=== PATIENT | female | born 1980 | race Caucasian/White ===

== ENCOUNTER 2016-09-11 08:06 | Emergency (ER) | payer BC ==
--- NOTE | 2016-09-11 08:26 | UC ---
Throat Pain/Nasal Abhijeet HPI - HPI Summary HPI Summary: complaint of nasal congestion and cough that started approx 7-10 days constant headache for 5 days pressure in her face more on left than right side fever and chills for the first several days left sided ear pain taking theraflu without much relief used albuterol inhaler twice during this illness - History of Current Complaint Stated Complaint: SINUS COMPLAINT Time Seen by Provider: 09/11/16 08:20 Hx Obtained From: Patient Hx Last Menstrual Period: DOES NOT HAVE REG PERIODS, HAS A MIRENA IUD - Allergies/Home Medications Allergies/Adverse Reactions: Allergies Allergy/AdvReac Type Severity Reaction Status Date / Time Penicillins Allergy Flushing Verified 09/11/16 08:35 Amoxicillin AdvReac GI Upset Verified 09/11/16 08:35 PMH/Surg Hx/FS Hx/Imm Hx Previously Healthy: Yes Respiratory History Of: Reports: Asthma - SEASONAL - Surgical History Surgical History: None - Family History Known Family History: Positive: Hypertension - Social History Occupation: Employed Full-time Lives: With Family Alcohol Use: Weekly Substance Use Type: None Smoking Status (MU): Never Smoked Tobacco Review of Systems Constitutional: Fever Skin: Negative Eyes: Negative ENT: Nasal Discharge Respiratory: Cough Cardiovascular: Negative Gastrointestinal: Negative Genitourinary: Negative Motor: Negative Neurovascular: Negative Musculoskeletal: Negative Neurological: Negative Psychological: Negative All Other Systems Reviewed And Are Negative: Yes Physical Exam Triage Information Reviewed: Yes Appearance: No Pain Distress, Well-Nourished Vital Signs Reviewed: Yes Eyes: Positive: Conjunctiva Clear ENT: Positive: Pharyngeal erythema, Nasal congestion, Nasal drainage, TM bulging , Other: - frontal and maxillary sinus tenderness. Negative: TM red Neck: Positive: No Lymphadenopathy Respiratory: Positive: Lungs clear, Normal breath sounds, No respiratory distress Cardiovascular: Positive: RRR, No Murmur Abdomen Description: Positive: Nontender, Soft Bowel Sounds: Positive: Present Musculoskeletal: Positive: No Edema Neurological: Positive: Alert Psychological Exam: Normal Skin Exam: Normal Throat Pain/Nasal Course/Dx - Differential Dx/Diagnosis Differential Diagnosis/HQI/PQRI: Sinusitis Provider Diagnoses: sinusitis Discharge - Discharge Plan Condition: Stable Disposition: HOME Prescriptions: DOXYcycline CAP(*) [DOXYcycline 100MG CAP(*)] 100 mg PO BID #20 cap Patient Education Materials: Sinusitis (ED) Referrals: Myriam Redding [Primary Care Provider] - Additional Instructions: SINUSITIS What is Sinusitis? Sinusitis is inflammation or infection of the lining of the sinuses behind the bones in your cheeks or forehead. Sinusitis may occur following a common cold, flu, or other infection; allergies; a tooth infection that spreads to the sinuses; swimming in contaminated water; pressure changes in airplanes at high altitudes; violent sneezing or nose blowing or smoking or breathing other peoples smoke. Symptoms Might Include: Nasal Congestion Sneezing Watery eyes, eye irritation, or eye itching Headaches Pressure in the cheeks Wheezing Trouble smelling Sore throat and coughing may occur Treatment Recommendations: Take medicines as prescribed until completely gone. Drink plenty of fluids. Use saline nose spray to thin the mucous and help the sinuses drain. Use a vaporizer or humidifier. Apply warm compresses to the face or forehead several times a day for 10 to 20 minutes. Call Your Doctor or Return Here IF: Your pain increases during treatment. You develop a high temperature. You develop unusual swelling around the eyes. You have difficulty with your vision. You develop a severe headache, earache, or toothache. You develop increased fever or fever that does not respond to medication such as Tylenol?. You have difficulty breathing or catching your breath. You begin to have any other new symptoms that worry you.
[2016-09-11 08:43] VITALS: BP 124/79
== END 2016-09-11 08:58 | disposition home or self-care (01) ==
LOC: UCCORT 08:06
DX: J32.9 Chronic sinusitis, unspecified (principal); Z88.1 Allergy status to other antibiotic agents; Z88.0 Allergy status to penicillin
CPT/HCPCS: 99212; G0463

== ENCOUNTER 2017-05-10 10:14 | Emergency (ER) | payer BC ==
[2017-05-10 12:19] VITALS: BP 124/88
--- NOTE | 2017-05-10 12:30 | UC ---
Throat Pain/Nasal Abhijeet HPI - HPI Summary HPI Summary: 36 year old female with ST, sinus pressure and productive cough. Cough is causing some chest heaviness and feels like she has something in her lungs. 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 Sore throat is scratchy and not bad. No fever. no chills . No n/v/d. Missed school today. - History of Current Complaint Chief Complaint: UCGeneralIllness Stated Complaint: THROAT,CHEST CONGESTION,BILATERAL EAR COMPLAINT Time Seen by Provider: 05/10/17 12:27 Hx Obtained From: Patient Hx Last Menstrual Period: MIRANA Onset/Duration: Gradual Onset Cough: Productive - Allergies/Home Medications Allergies/Adverse Reactions: Allergies Allergy/AdvReac Type Severity Reaction Status Date / Time Penicillins Allergy Flushing Verified 05/10/17 12:19 Amoxicillin AdvReac GI Upset Verified 05/10/17 12:19 PMH/Surg Hx/FS Hx/Imm Hx Previously Healthy: Yes - Surgical History Surgical History: None - Family History Known Family History: Positive: Hypertension - Social History Occupation: Employed Full-time Lives: With Family Alcohol Use: Weekly Substance Use Type: None Smoking Status (MU): Never Smoked Tobacco - Immunization History Most Recent Influenza Vaccination: NOT CURRENT Review of Systems Constitutional: Fatigue ENT: Sore Throat, Ear Ache, Nasal Discharge, Sinus Congestion, Sinus Pain/ Tenderness Respiratory: Cough Is Patient Immunocompromised?: No All Other Systems Reviewed And Are Negative: Yes Physical Exam Triage Information Reviewed: Yes Appearance: Well-Appearing, No Pain Distress, Well-Nourished Vital Signs: Initial Vital Signs Temp 97.9 F 05/10/17 12:12 Pulse 79 05/10/17 12:12 Resp 18 05/10/17 12:12 BP 124/88 05/10/17 12:12 Pulse Ox 100 05/10/17 12:12 Vital Signs Reviewed: Yes Eye Exam: Normal ENT Exam: Normal Dental Exam: Normal Neck exam: Normal Neck: Positive: 1 Respiratory Exam: Normal Cardiovascular Exam: Normal Musculoskeletal Exam: Normal Neurological Exam: Normal Psychological Exam: Normal Skin Exam: Normal Throat Pain/Nasal Course/Dx - Course Course Of Treatment: neg xray. URI. no acute concerns. RTO if any concerns - Differential Dx/Diagnosis Differential Diagnosis/HQI/PQRI: Pharyngitis, Sinusitis, Tonsillitis, URI Provider Diagnoses: URI Discharge - Discharge Plan Condition: Good Disposition: HOME Patient Education Materials: Upper Respiratory Infection (ED) Referrals: Myriam Redding [Primary Care Provider] - 4 Days
--- NOTE | 2017-05-10 13:01 | RAD ---
INDICATION: Cough COMPARISON: None TECHNIQUE: PA and lateral dual-energy views were obtained. FINDINGS: Bones/Soft Tissues: There are no acute bony findings. Cardiomediastinal: The cardiomediastinal silhouette is normal. Lungs: There are no infiltrates. Pleura: There are no pleural effusions. Other: None IMPRESSION: NORMAL CHEST.
== END 2017-05-10 13:27 | disposition home or self-care (01) ==
LOC: UCCORT 10:14
DX: J06.9 Acute upper respiratory infection, unspecified (principal); Z88.0 Allergy status to penicillin
CPT/HCPCS: 71020; 99211; G0463

== ENCOUNTER 2017-12-22 18:34 | Emergency (ER) | payer BC ==
[2017-12-22 19:28] VITALS: BP 135/83
--- NOTE | 2017-12-22 19:56 | UC ---
Throat Pain/Nasal Abhijeet HPI - HPI Summary HPI Summary: C/O bilateral ear pain, left > right with congestion and sinus pain. No cough or sore throat. - History of Current Complaint Chief Complaint: UCEar Stated Complaint: SINUS PRESSURE AND EARS Time Seen by Provider: 12/22/17 19:48 Hx Obtained From: Patient Hx Last Menstrual Period: HAS THE MIRENA, DOES NOT HAVE REG PERIODS ?: No Onset/Duration: Sudden Onset, Lasting Weeks - 1, Worse Since - today Severity: Moderate Pain Intensity: 5 Cough: None Associated Signs & Symptoms: Positive: Sinus Discomfort Related History: Seasonal Allergies - Allergies/Home Medications Allergies/Adverse Reactions: Allergies Allergy/AdvReac Type Severity Reaction Status Date / Time amoxicillin Allergy GI Upset Verified 12/22/17 19:19 Penicillins Allergy Flushing Verified 12/22/17 19:19 Home Medications: Home Medications Fluticasone NASAL SPRAY 50MCG* [Flonase NASAL SPRAY 50MCG*] 2 spray BOTH NARES DAILY 12/22/17 [History Confirmed 12/22/17] PMH/Surg Hx/FS Hx/Imm Hx Respiratory History: Asthma - Surgical History Surgical History: None - Family History Known Family History: Positive: Cardiac Disease, Hypertension, Diabetes - Social History Occupation: Employed Full-time Lives: With Family Alcohol Use: Weekly Substance Use Type: None Smoking Status (MU): Never Smoked Tobacco - Immunization History Most Recent Influenza Vaccination: NOT CURRENT Review of Systems Constitutional: Chills ENT: Ear Ache, Sinus Congestion, Sinus Pain/Tenderness Is Patient Immunocompromised?: No All Other Systems Reviewed And Are Negative: Yes Physical Exam Triage Information Reviewed: Yes Appearance: Well-Appearing, No Pain Distress, Well-Nourished Vital Signs: Initial Vital Signs Temp 99.1 F 12/22/17 19:21 Pulse 87 12/22/17 19:21 Resp 16 12/22/17 19:21 BP 135/83 12/22/17 19:21 Pulse Ox 99 12/22/17 19:21 Vital Signs Reviewed: Yes Eyes: Positive: Conjunctiva Clear ENT: Positive: Pharynx normal, Nasal congestion - with allergic changes., TMs normal - AD, obstructed by material in the canal. Tender left external canal. Neck exam: Normal Respiratory Exam: Normal Cardiovascular Exam: Normal Musculoskeletal Exam: Normal Neurological Exam: Normal Psychological Exam: Normal Skin: Positive: rashes - Herpes outbreak right lower lip Throat Pain/Nasal Course/Dx - Differential Dx/Diagnosis Differential Diagnosis/HQI/PQRI: Otitis Media, Sinusitis, URI Provider Diagnoses: Left acute otitis externa. Allergic rhinitis. Acute sinusitis. Discharge - Sign-Out/Discharge Documenting (check all that apply): Discharge/Admit/Transfer - Discharge Plan Condition: Stable Disposition: HOME Prescriptions: Cefuroxime 500 MG(NF) 500 mg PO BID #20 tab Patient Education Materials: Allergic Rhinitis (ED), Otitis Externa (ED), Sinusitis (ED), Cefuroxime (By mouth) Referrals: Myriam Redding [Primary Care Provider] - Additional Instructions: NEILMED SINUS RINSE: CHECK OUT AT [facility] Saline nasal wash helps with mucous, allergies and congestion. It can be used up to twice a day or only as needed. Use lukewarm tap water. It does not have to be sterilized or distilled water. Do 1/3 on each side and snort out of both nostrils. Repeat the process with 1/6 of the bottle on each side with snorting in between to finish the solution in the bottle Do the fluticasone 30-45 minutes after the sinus rinse. - Billing Disposition and Condition Condition: STABLE Disposition: Home
[2017-12-22] MEDS ORDERED: ceFUROXime TAB(*) 250 MG PO ONE (20:03)
== END 2017-12-22 20:20 | disposition home or self-care (01) ==
LOC: UCCORT 18:34
DX: H60.92 Unspecified otitis externa, left ear (principal); J30.9 Allergic rhinitis, unspecified; J01.90 Acute sinusitis, unspecified; Z88.0 Allergy status to penicillin
CPT/HCPCS: 99212; G0463

== ENCOUNTER 2018-04-04 14:37 | Emergency (ER) | payer BC ==
[2018-04-04 15:25] VITALS: BP 119/82
--- NOTE | 2018-04-04 15:41 | ED ---
Throat Pain/Nasal Congestion - HPI Summary HPI Summary: 37 yr old female with the complaint of bilateral ear pain, sinus pressure, post nasal drip, and cough. Onset 7 days ago. No NVD, no fever. She has had sinusitis and ear infections before. This happens each year. - History of Current Complaint Chief Complaint: UCGeneralIllness Time Seen by Provider: 04/04/18 15:28 - Allergies/Home Medications Allergies/Adverse Reactions: Allergies Allergy/AdvReac Type Severity Reaction Status Date / Time amoxicillin Allergy GI Upset Verified 04/04/18 15:25 Penicillins Allergy Flushing Verified 04/04/18 15:25 PMH/Surg Hx/FS Hx/Imm Hx Respiratory History: Reports: Hx Asthma - SEASONAL Infectious Disease History: No Infectious Disease History: Denies: Traveled Outside the [place] in Last 30 Days - Family History Known Family History: Positive: Cardiac Disease, Hypertension, Diabetes - Social History Occupation: Employed Full-time Alcohol Use: Weekly Substance Use Type: Reports: None Smoking Status (MU): Never Smoked Tobacco Review of Systems Constitutional: Negative Positive: Ear Ache, Nasal Discharge Positive: Cough All Other Systems Reviewed And Are Negative: Yes Physical Exam Triage Information Reviewed: Yes Vital Signs On Initial Exam: Initial Vitals Temp Pulse Resp BP Pulse Ox 97.8 F 81 16 119/82 3 04/04/18 15:21 04/04/18 15:21 04/04/18 15:21 04/04/18 15:21 04/04/18 15:21 Vital Signs Reviewed: Yes Appearance: Positive: Well-Appearing, No Pain Distress Skin: Positive: Warm, Skin Color Reflects Adequate Perfusion, Dry Head/Face: Positive: Normal Head/Face Inspection Eyes: Positive: EOMI, JAIR ENT: Positive: Nasal congestion, TM red - left greater than right with effusion , Sinus tenderness, Uvula midline. Negative: Pharyngeal erythema, Muffled voice , Hoarse voice Neck: Positive: Supple, Nontender Respiratory/Lung Sounds: Positive: Clear to Auscultation, Breath Sounds Present Cardiovascular: Positive: RRR. Negative: Murmur Abdomen Description: Positive: Nontender Musculoskeletal: Positive: Strength/ROM Intact Neurological: Positive: Sensory/Motor Intact, Alert, Oriented to Person Place, Time, CN Intact II-III Psychiatric: Positive: Normal - Lionel Coma Scale Best Eye Response: 4 - Spontaneous Best Motor Response: 6 - Obeys Commands Best Verbal Response: 5 - Oriented Coma Scale Total: 15 Diagnostics - Vital Signs Vital Signs Temp Pulse Resp BP Pulse Ox 04/04/18 15:21 97.8 F 81 16 119/82 3 - Laboratory Lab Statement: Any lab studies that have been ordered have been reviewed, and results considered in the medical decision making process. EENT Course/Dx - Course Course Of Treatment: 37 yr old female with sinusitis, and OM. Rx with biaxin. - Diagnoses Provider Diagnoses: Sinusitis, Otitis media Discharge - Sign-Out/Discharge Documenting (check all that apply): Patient Departure All imaging exams completed and their final reports reviewed: No Studies - Discharge Plan Condition: Good Disposition: HOME Prescriptions: Clarithromycin TAB* [Biaxin 500 MG TAB*] 500 mg PO BID #20 tab Patient Education Materials: Sinusitis (ED), Ear Infection (ED) Referrals: Myriam Redding [Primary Care Provider] - 2 Days - Billing Disposition and Condition Condition: GOOD Disposition: Home
== END 2018-04-04 15:44 | disposition home or self-care (01) ==
LOC: UCCORT 14:37
DX: J32.9 Chronic sinusitis, unspecified (principal); H66.93 Otitis media, unspecified, bilateral; Z88.0 Allergy status to penicillin
CPT/HCPCS: 99212; G0463

== ENCOUNTER 2018-08-22 10:02 | Emergency (ER) | payer BC ==
[2018-08-22 10:51] VITALS: BP 126/80
--- NOTE | 2018-08-22 11:20 | UC ---
Throat Pain/Nasal Abhijeet HPI - HPI Summary HPI Summary: Patient has had increased sinus pressure and ear pressure, denies any SOB fever or body aches - History of Current Complaint Chief Complaint: UCRespiratory Stated Complaint: SINUS CONGESTION,ST,COUGH,ACHY Time Seen by Provider: 08/22/18 11:03 Hx Obtained From: Patient Hx Last Menstrual Period: IUD ?: No Onset/Duration: Sudden Onset, Lasting Weeks - 1 Severity: Mild Pain Intensity: 0 Cough: Nonproductive Associated Signs & Symptoms: Positive: Dysphagia, Sinus Discomfort, Nasal Discharge - Allergies/Home Medications Allergies/Adverse Reactions: Allergies Allergy/AdvReac Type Severity Reaction Status Date / Time amoxicillin Allergy Severe GI Upset Verified 08/22/18 10:47 Penicillins Allergy Flushing Verified 08/22/18 10:47 PMH/Surg Hx/FS Hx/Imm Hx Previously Healthy: Yes - Surgical History Surgical History: None - Family History Known Family History: Positive: Cardiac Disease, Hypertension, Diabetes - Social History Alcohol Use: Weekly Alcohol Amount: 3/WEEK Substance Use Type: None Smoking Status (MU): Never Smoked Tobacco - Immunization History Most Recent Influenza Vaccination: NOT CURRENT Review of Systems All Other Systems Reviewed And Are Negative: Yes Constitutional: Positive: Negative Skin: Positive: Negative Eyes: Positive: Negative ENT: Positive: Sore Throat, Ear Ache, Nasal Discharge, Sinus Congestion, Sinus Pain/Tenderness Respiratory: Positive: Cough Cardiovascular: Positive: Negative Gastrointestinal: Positive: Negative Genitourinary: Positive: Negative Motor: Positive: Negative Neurovascular: Positive: Negative Musculoskeletal: Positive: Negative Neurological: Positive: Headache Psychological: Positive: Negative Is Patient Immunocompromised?: No Physical Exam Triage Information Reviewed: Yes Appearance: Well-Nourished, Ill-Appearing, Pain Distress Vital Signs: Initial Vital Signs Temp 97.4 F 08/22/18 10:48 Pulse 80 08/22/18 10:48 Resp 15 08/22/18 10:48 BP 126/80 08/22/18 10:48 Pulse Ox 100 08/22/18 10:48 Vital Signs Reviewed: Yes Eye Exam: Normal ENT: Positive: Pharyngeal erythema - wiht PND, Nasal congestion - bilateral inflammation of nares noted Dental Exam: Normal Neck exam: Normal Respiratory: Positive: Chest non-tender, Normal breath sounds, No respiratory distress, Wheezing, Inspiration - left and right lung Cardiovascular Exam: Normal Cardiovascular: Positive: RRR, No Murmur, Pulses Normal Abdominal Exam: Normal Abdomen Description: Positive: Nontender, No Organomegaly, Soft Musculoskeletal Exam: Normal Neurological Exam: Normal Psychological Exam: Normal Skin Exam: Normal Throat Pain/Nasal Course/Dx - Course Course Of Treatment: hx obtained exam performed ,meds reviewed, treate for sinusitis and wheezing - Differential Dx/Diagnosis Differential Diagnosis/HQI/PQRI: Laryngitis, Otitis Media, Pharyngitis, Sinusitis, URI Provider Diagnosis: Rhinosinusitis, Wheezing Discharge - Sign-Out/Discharge Documenting (check all that apply): Patient Departure All imaging exams completed and their final reports reviewed: No Studies - Discharge Plan Condition: Stable Disposition: HOME Prescriptions: Albuterol HFA INHALER* [Ventolin HFA Inhaler*] 2 puff INH Q4H PRN #1 mdi PRN Reason: Wheezing predniSONE [Prednisone 20 MG TAB] 40 mg PO DAILY #14 tablet Patient Education Materials: Rhinosinusitis (ED) Referrals: Myriam Redding [Primary Care Provider] - Additional Instructions: 1. take the medication as prescribed. 2. Start the Elena after the prednisones 3. Continue with nasal wash 1-2 times a day 4. use the albuterol morning and night for the next few days, can use it every 4 hours as needed. 5. Follow up if not improving - Billing Disposition and Condition Condition: STABLE Disposition: Home
== END 2018-08-22 11:26 | disposition home or self-care (01) ==
LOC: UCCORT 10:02
DX: J32.9 Chronic sinusitis, unspecified (principal); R06.2 Wheezing; Z88.0 Allergy status to penicillin
CPT/HCPCS: 99212; G0463

== ENCOUNTER 2018-09-17 09:15 | Emergency (ER) | payer BC ==
[2018-09-17 10:17] VITALS: BP 116/78
--- NOTE | 2018-09-17 10:28 | UC ---
UC General HPI - HPI Summary HPI Summary: per triage, Body aches and fatigue, fever headache started suddenly last night ; Sneezing for a few days - History of Current Complaint Chief Complaint: UCRespiratory Stated Complaint: HEADACHE, FEVER Time Seen by Provider: 09/17/18 10:15 Hx Obtained From: Patient Hx Last Menstrual Period: n/a Onset/Duration: Sudden Onset Timing: Constant Pain Intensity: 7 Associated Signs & Symptoms: Negative: Cough, Chest Pain, Diarrhea, SOB, Vomiting - Allergy/Home Medications Allergies/Adverse Reactions: Allergies Allergy/AdvReac Type Severity Reaction Status Date / Time amoxicillin Allergy Severe GI Upset Verified 09/17/18 10:10 Penicillins Allergy Flushing Verified 09/17/18 10:10 seasonal Allergy sinus Uncoded 09/17/18 10:11 infections Home Medications: Home Medications Fexofenadine/Pseudoephedrine [Elena-D 24 Hour Tablet] 1 each PO DAILY [History Confirmed 09/17/18] PMH/Surg Hx/FS Hx/Imm Hx - Additional Past Medical History Additional PMH: allergies GI/ History: Gastroesophageal Reflux - Surgical History Surgical History: None - Family History Known Family History: Positive: Cardiac Disease, Hypertension, Diabetes - Social History Occupation: Employed Full-time Lives: With Family Alcohol Use: Weekly Alcohol Amount: 3/WEEK Substance Use Type: None Smoking Status (MU): Never Smoked Tobacco - Immunization History Most Recent Influenza Vaccination: NOT CURRENT Vaccination Up to Date: Yes Review of Systems All Other Systems Reviewed And Are Negative: Yes Physical Exam Triage Information Reviewed: Yes Appearance: Ill-Appearing - but non toxic Vital Signs: Initial Vital Signs Temp 97.6 F 09/17/18 10:13 Pulse 83 09/17/18 10:13 Resp 14 09/17/18 10:13 BP 116/78 09/17/18 10:13 Pulse Ox 100 09/17/18 10:13 Vital Signs Reviewed: Yes Eyes: Positive: Conjunctiva Clear ENT: Positive: Pharynx normal, TMs normal. Negative: Nasal drainage Neck: Positive: Supple, Nontender, No Lymphadenopathy Respiratory: Positive: Lungs clear, Normal breath sounds Cardiovascular: Positive: RRR, No Murmur Abdomen Description: Positive: Nontender Bowel Sounds: Positive: Present Musculoskeletal: Positive: ROM Intact Neurological: Positive: Alert Psychological: Positive: Age Appropriate Behavior Skin Exam: Normal Course/Dx - Course Course Of Treatment: DIAGNOSTICS=RAPID FLU IS NEGATIVE. - Diagnoses Provider Diagnosis: Viral syndrome Discharge - Sign-Out/Discharge Documenting (check all that apply): Patient Departure All imaging exams completed and their final reports reviewed: No Studies - Discharge Plan Condition: Stable Disposition: HOME Patient Education Materials: Viral Syndrome (ED) Forms: *Work Release Referrals: Myriam Redding [Primary Care Provider] - Additional Instructions: FOLLOW UP WITH PRIMARY CARE IF NOT BETTER IN 3-5 DAYS OR SOONER IF WORSE. - Billing Disposition and Condition Condition: STABLE Disposition: Home
[2018-09-17 10:42] LABS: Influenza A Molecular NEGATIVE (Negative); Influenza B Molecular NEGATIVE (Negative)
== END 2018-09-17 11:10 | disposition home or self-care (01) ==
LOC: UCCORT 09:15
DX: B34.9 Viral infection, unspecified (principal); R53.83 Other fatigue; R52 Pain, unspecified; R51 Headache; Z88.0 Allergy status to penicillin; Z91.09 Other allergy status, other than to drugs and biological substances
CPT/HCPCS: 99211; G0463

== ENCOUNTER 2019-07-13 11:21 | Emergency (ER) | payer BC ==
--- OUTSIDE RECORDS SUMMARY | 2019-07-13 12:32 | XMS REPORT | Continuity of Care Document ---
:1980 External Reference #:[id number] Author Name HUY Wells Address [address] [place] [id number] Problems Description No Information Available Social History Type Date Description Comments Sex Unknown Allergies, Adverse Reactions, Alerts Active Allergies Reaction Severity Comments Date Penicillin Diarrhea 05/12/2019 Medications Active Medications SIG Qnty Indications Ordering Provider Date Ventolin HFA 2 puffs every 6 1units J45.901 Dejuan 05/12/2019 108(90Base) hours MD Estephanie mcg/Act Aerosol Prednisone 40mg daily x 5 10tabs J45.901 Dejuan 05/12/2019 20mg Tablets days MD Estephanie Azithromycin 2 by mouth day 6tabs J45.901 Dejuan 05/12/2019 250mg one then 1 days MD Estephanie Tablets 2-5 Omeprazole prn Unknown 20mg Capsules DR Moffett prn Unknown 1gm Tablets Fluticasone Propionate prn Unknown Nasal [place] 24- Hour 50mcg/Act Suspension Immunizations Description No Information Available Vital Signs Date Vital Result Comment 05/12/2019 11:04am Heart Rate 104 /min BP Systolic 124 mmHg BP Diastolic 76 mmHg Respiratory Rate 16 /min Body Temperature 99.6 F O2 % BldC Oximetry 99 % Results Description No Information Available Procedures Description No Information Available Medical Devices Description No Information Available Encounters Type Date Location Provider Dx Diagnosis Office Visit 05/12/2019 [facility] HUY Wells J20.9 Acute bronchitis, 10:59a Walk-in at [place] unspecified Drugs J45.901 Unspecified asthma with (acute) exacerbation Assessments Date Code Description Provider 05/12/2019 J20.9 Acute bronchitis, unspecified HUY Wells 05/12/2019 J45.901 Unspecified asthma with (acute) exacerbation HUY Wells Plan of Treatment 05/12/2019 - HUY WellsJ20.9 Acute bronchitis, unspecifiedComments: FOLLOW UP WITH PRIMARY CARE, [facility] IN 5-7 DAYS FOR A RECHECK.GO TO THE ER FOR ANY WORSENING.J45.901 Unspecified asthma with (acute) exacerbationNew Medication:Ventolin HFA 108(90 Base) mcg/Act - 2 puffs every 6 hoursPrednisone 20 mg - 40mg daily x 5 daysAzithromycin 250 mg - 2 by mouth day one then 1 days 2-5 Functional Status Description No Information Available Mental Status Description No Information Available Referrals Description No Information Available
--- OUTSIDE RECORDS SUMMARY | 2019-07-13 12:32 | XMS REPORT | Continuity of Care Document ---
:1980 External Reference #:[id number] Author Name Radha Mohan, DEANA Address [address] [place] [id number] Care Team Providers Name Role Phone Radha Steiner MD - Care Team Information Machine Washer [phone] Dermatology Epi Thomas md Care Team Information Machine Washer [phone] Radha Mohan NP - Family Care Team Information Machine Washer [phone] [facility] Allergy & Care Team Information Machine Washer Immunology Problems Active Problems Provider Date Migraine with typical aura Myriam Redding NP Onset: 05/20/2012 Heartburn Myriam Redding NP Onset: 01/06/2019 Allergic rhinitis Myriam Redding NP Onset: 01/06/2019 Social History Type Date Description Comments Sex Unknown ETOH Use Currently consumes alcohol daily, up to 6 beers/day Tobacco Use Start: Unknown Patient has never smoked Smoking Status Reviewed: 06/01/19 Patient has never smoked Allergies, Adverse Reactions, Alerts Active Allergies Reaction Severity Comments Date NKDA 07/06/2014 Seasonal 04/25/2016 Medications Active Medications SIG Qnty Indications Ordering Provider Date Prednisone 6 by mouth daily LashataEmily Constantino, 06/06/2019 10mg Tablets x 3 days, then MD decrease dose by 1 pill daily every 3 days until gone. Mirena (52 MG) as directed Miladis, 10/10/2017 DEANA Miguel 20mcg/24HR IUD Proair HFA 2 puffs every 4 1units T78.40xA Digiovanna, 01/08/2015 108(90Base) hours as needed Myriam, BOILING HOUSE OILER mcg/Act Aerosol for cough or sob J30.9 Fluticasone Shake Liquid And 16units T78.40xA Digiovanna, 10/16/2014 Propionate Use 1 [place] In Myriam, BOILING HOUSE OILER 50mcg/Act Each Nostril Suspension Daily J30.9 Excedrin Migraine 1-2 po Q4H prn G43.109 Digiovanna, 07/06/2014 migraine Myriam, BOILING HOUSE OILER [phone] Tablets Valacyclovir HCL 1 tab by mouth 20tabs B00.1 Digiovanna, 1gm q12 x 5 days Myriam, BOILING HOUSE OILER Tablets hours as needed Omeprazole take 1 capsule by 90caps R12 Digiovanna, 20mg Capsules mouth daily as Myriam, BOILING HOUSE OILER DR needed History Medications Benzonatate 1 by mouth 60caps R05 Emily Weinberg, 05/30/2019 - 100mg three times a 06/09/2019 Capsules day as needed for cough Prednisone 2 by mouth 11tabs J20.9 Emily Weinberg, 05/30/2019 - 20mg Tablets every day for 4 MD 06/06/2019 days then 1 by mouth every day for 3 days Immunizations CPT Code Status Date Vaccine Reaction Lot # [id number] Given 05/20/2012 Tdap (Adacel) Ages 7 And Above Only [id number] Refused 04/08/2019 Afluria Or Fluvirin Flu Vac Intramuscular Q2039 Refused 01/06/2019 Flu Vaccine NOS Pt says she does not get flu shots. CARYL TROY Q2039 Refused 07/15/2018 Flu Vaccine NOS NOT GETTING Vital Signs Date Vital Result Comment 06/09/2019 3:03pm Body Temperature 97.8 F Weight 145.00 lb Heart Rate 80 /min BP Systolic 110 mmHg BP Diastolic 84 mmHg Respiratory Rate 16 /min Height 63.5 inches 5'3.50" CARYL Troy 01/06/19 O2 % BldC Oximetry 99 % BMI (Body Mass Index) 25.3 kg/m2 05/30/2019 4:28pm Body Temperature 98.6 F Heart Rate 79 /min BP Systolic 122 mmHg BP Diastolic 86 mmHg Respiratory Rate 16 /min Height 63.5 inches 5'3.50" CARYL Troy 01/06/19 O2 % BldC Oximetry 99 % Results Test Acquired Date Facility Test Result H/L Range Note CBC with Auto Diff-fcmg 06/09/2019 [facility] WBC 15.6 K/uL High 4.1-11.0 1 RBC 4.49 M/uL 4.00-5.40 2 Hemoglobin 14.6 gm/dL 12.0-16.0 3 Hematocrit 43.3 % 36.0-47.0 4 MCV 96.6 fL High 80.0-95.0 5 MCH 32.5 pg High 27.0-32.0 6 MCHC 33.6 g/dL 32.0-36.0 7 RDW 13.6 % 10.5-14.5 8 PLT Count 312 K/ul 150-400 9 MPV 8.6 FL 7.1-10.7 Neutrophil 89.7 % High 35.0-75.0 10 Lymphocyte 6.9 % Low 16.0-52.0 11 Monocyte 3.0 % 0.0-8.0 12 Eosinophil 0.0 % 0.0-5.0 Basophil 0.4 % 0.0-4.0 Abs Neutrophils 14.0 K/uL High 1.8-7.7 13 Abs Lymphocytes 1.1 K/uL Low 1.2-4.8 14 Abs Monocytes 0.5 K/uL 0.0-0.8 15 Abs Eosinophils 0.0 K/uL 0.0-0.5 16 Abs Basophils 0.1 K/uL 0.0-0.2 17 Comprehensive Met Panel-[facility] 06/09/2019 [facility] Sodium 139 mmol/L 135- 146 18 Potassium 4.2 mmol/L 3.5-5.2 Chloride# 103 mmol/L 97-110 19 Carbon Dioxide 27 mmol/L 24-34 Calcium 9.9 mg/dL 8.5-10.5 20 Glucose 101 mg/dL 70-105 BUN 17 mg/dL 6-26 Creatinine 0.8 mg/dL 0.5-1.4 Total Protein 6.6 g/dL 6.0-8.0 Albumin 4.7 g/dL 3.6-4.9 Globulin 1.9 g/dL Low 2.0-3.5 A/G Ratio 2.5 Ratio High 1.0-2.2 Total Bilirubin 0.7 mg/dL 0.1-1.3 Alkaline Phosphatase 57 U/L 24-140 Alt 13 U/L 3-42 Ast 12 U/L 8-42 Anion Gap 9 mmol/L 5-15 21 Female Egfr 90 >60 22 Male Egfr 111 >60 23 1 Updated Reference Range 04/2019 2 Updated Reference Range 04/2019 3 Updated Reference Range 04/2019 4 Updated Reference Range 04/2019 5 Updated Reference Range 04/2019 6 Updated Reference Range 04/2019 7 Updated Reference range 04/2019 8 Updated Reference range 04/2019 9 Updated Reference Range 04/2019 10 Updated Reference Range 04/2019 11 Updated Reference Range 04/2019 12 Updated Reference Range 04/2019 13 Updated Reference Range 04/2019 14 Updated Reference Range 04/2019 15 Updated Reference Range 04/2019 16 Updated Reference Range 04/2019 17 Updated Reference Range 04/2019 18 Updated reference range on new analyzer 19 Updated reference range on new analyzer 20 Updated reference range 10-23-2018 21 Updated Reference Range 22 Concerning GFR Guidelines for Americans: Normal function or mild renal disease, if clinically at risk: >/= 60 mL/min Moderately decreased: 30-59 Severely decreased: 15-29 Renal failure: <15 There is reduced accuracy above 60ml/min/1.73 m squared, but the numeric value may be clinically useful in the near 60 range 23 Concerning GFR Guidelines: Normal function or mild renal disease, if clinically at risk: >/= 60 mL/min Moderately decreased: 30-59 Severely decreased: 15-29 Renal failure: <15 There is reduced accuracy above 60ml/min/1.73 m squared, but the numeric value may be clinically useful in the near 60 range Glomerular Filtration Rate (GFR) is estimated based on the CKD-EPI equation, which assumes a steady state for creatinine as recommended by the National Kidney Disease Education Program in conjunction with the National Institutes of Health and the National Kidney Foundation. Clinical conditions in which it may be necessary to measure GFR by using clearance methods include extremes of age and body size, severe malnutrition or obesity, diseases of skeletal muscle, paraplegia or quadriplegia, vegetarian diet, rapidly changing kidney function, and calculation of the dose of potentially toxic drugs that are excreted by the kidneys. Procedures Date Code Description Status 06/09/2019 80710 Measure Blood Oxygen Level Single Determination Completed 05/30/2019 02767 Measure Blood Oxygen Level Single Determination Completed Medical Devices Description No Information Available Encounters Type Date Location Provider Dx Diagnosis Office Visit 05/30/2019 [facility] Radha Mohan NP J20.9 Acute bronchitis, 4:15p unspecified R05 Cough Office Visit 04/08/2019 2:30p [facility] Myriam Redding BOILING HOUSE OILER D49.2 Neoplasm of unsp behavior of bone, soft tissue, and skin Z68.26 Body mass index (BMI) 26.0-26.9, adult Office Visit 01/06/2019 11:00a [facility] DigisaiahvanLauren agudeloMyriam, Z00.00 Encntr for general BOILING HOUSE OILER adult medical exam w/o abnormal findings G43.109 Migraine with aura, not intractable, w/o status migrainosus R12 Heartburn J30.9 Allergic rhinitis, unspecified 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, in remission Z13.31 Encounter for screening for depression Z68.28 Body mass index (BMI) 28.0-28.9, adult Assessments Date Code Description Provider 06/09/2019 R00.2 Palpitations Radha Mohan NP 06/09/2019 J20.9 Acute bronchitis, unspecified StraRadha ocampo, BOILING HOUSE OILER 06/09/2019 R00.2 Palpitations Schedule, Laboratory 06/09/2019 R00.2 Palpitations [facility] 05/30/2019 J20.9 Acute bronchitis, unspecified Radha Mohan, BOILING HOUSE OILER 05/30/2019 R05 Cough Radha Mohan, BOILING HOUSE OILER 04/08/2019 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, Digiovanna, Myriam, BOILING HOUSE OILER soft tissue, and skin 04/08/2019 Z68.26 Body mass index (BMI) 26.0-26.9, adult DigLauren khanricia, BOILING HOUSE OILER 01/06/2019 Z00.00 Encounter for general adult medical Myriam Redding, BOILING HOUSE OILER examination without abno 01/06/2019 G43.109 Migraine with aura, not intractable, Digiovanna, Myriam , BOILING HOUSE OILER without status migraino 01/06/2019 R12 Heartburn Lauren Reddingricia, BOILING HOUSE OILER 01/06/2019 J30.9 Allergic rhinitis, unspecified Digiovanna, Myriam, BOILING HOUSE OILER 01/06/2019 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, in remission Digiovanna, Myriam, BOILING HOUSE OILER 01/06/2019 Z13.31 Encounter for screening for depression Myriam Redding NP 01/06/2019 Z68.28 Body mass index (BMI) 28.0-28.9, adult Myriam Redding NP Plan of Treatment Future Appointment(s):07/11/2019 8:00 am - Radha Mohan NP at [facility]01/12/2020 9:00 am - Radha Mohan NP at [facility]06/09/2019 - Radha Mohan, NPR00.2 PalpitationsNew Orders:Holter Monitor, Ordered: 06/09/19Comments:Intermittent Palpitations with electric like sensation. Asymptomatic now. Exam unremarkable.Will check holtor monitor and labs. Consider referral to cardiology with significant findings. Advised to initiate EMS if palpitations occur in association with HR>120, chest pain, shortness of breath, dizziness or feeling faint.Follow up:Labs today Follow-up in one month for recheck of nyrfxhppdsxyW23.9 Acute bronchitis, unspecifiedComments:Bronchitis is better. Hyperinflation shown on CXR. State uncertain if diagnosed with asthma as a child however was raised with second hand smoke and was previously placed on Proair PRN. 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 Will refer to [facility] fore evaluation. Continue prednisone taper. Take with foodSupportive care:Plenty of rest and fluidsOTC Analgesics/antipyretics as neededRecommend Mucinex 600 mg every 12 hours until cough resolvesYou should start to feel better over the next 2-3 days. If your symptoms worsen or you develop fever greater than 101.0, return to office for re-evaluation.Referral:[facility] & [facility]; Immun[facility] Functional Status Description No Information Available Mental Status Description No Information Available Referrals Refer to Reason for Referral Status Appt Date [facility] Diagnostic evaluation for asthma. Recent Created CXR with hyperinflation. Significant hx of second hand smoke in home as a child. [address] [place] [id number] [phone] Epi Thomas md Evaluation of large lipoma R upper arm Faxed Closed 09/2018 all forms for provider to review in order to get an apt scheduled. CHERELLE 04/15 Called and spoke to Sondra at Dr. Thomas office. Pt scheduled for 04/23@11am. LM on pt home phone to notify of apt date, time, and location. CHERELLE 04/15 called and spoke with and she stated that pt was sched on 04/28 and came to that and was sched for surg and no showed and never called back to sched surg 05/21 ms [address] [place] [address] [phone] Radha Steiner MD Evaluation and possible excision Patient Declined of skin lesion L lateral breast [place] Office FORMS FAXED FOR PROVIDER TO REVIEW IN ORDER TO GET AN APPT SCHEDULED/SCG/04/11 Called and spoke to Prabha who stated that they have not been able to get in contact with the pt yet she will be trying again today. And will fax us as soon as she gets an apt scheduled with her. CHERELLE 04/17 [address] [place] [address] [facility] [phone]
--- OUTSIDE RECORDS SUMMARY | 2019-07-13 12:32 | XMS REPORT | Continuity of Care Document ---
:1980 External Reference #:[id number] Author Name Radha Mohan, DEANA Address [address] [place] [phone] Care Team Providers Name Role Phone Radha Steiner MD - Care Team Information Paper Cutter [phone] Dermatology Epi Thomas md Care Team Information Paper Cutter [phone] Radha Mohan NP - Family Care Team Information Paper Cutter [phone] [facility] - Allergy & Care Team Information Paper Cutter [phone] Immunology Problems Active Problems Provider Date Migraine [...] Digiovanna, 01/08/2015 108(90Base) hours as needed Myriam, SOA ARCHITECT mcg/Act Aerosol for cough or sob J30.9 Fluticasone Shake Liquid And 16units T78.40xA Digiovanna, 10/16/2014 Propionate Use 1 [place] In Myriam, SOA ARCHITECT 50mcg/Act Each Nostril Suspension Daily J30.9 Excedrin Migraine 1-2 po Q4H prn G43.109 Digiovanna, 07/06/2014 migraine Myriam, SOA ARCHITECT [phone] Tablets Valacyclovir HCL 1 tab by mouth 20tabs B00.1 Digiovanna, 1gm q12 x 5 days Myriam, SOA ARCHITECT Tablets hours as needed Omeprazole take 1 capsule by 90caps R12 Digiovanna, 20mg Capsules mouth daily as Myriam, SOA ARCHITECT DR needed History Medications Benzonatate 1 by mouth 60caps R05 Emily Weinberg, 05/30/2019 - 100mg three times a 06/09/2019 Capsules day as needed for cough Prednisone 2 by mouth 11tabs J20.9 Emily Weinberg, 05/30/2019 - 20mg Tablets every day for 4 MD 06/06/2019 days then 1 by mouth every day for 3 days Immunizations CPT Code Status Date Vaccine Reaction Lot # [id number] Given 05/20/2012 Tdap (Adacel) Ages 7 And Above Only [id number] Refused 04/08/2019 Afluria Or Fluvirin Flu Vac [...] kidneys. Procedures Date Code Description Status 06/09/2019 98119 Measure Blood Oxygen Level Single Determination Completed 05/30/2019 26991 Measure Blood Oxygen Level Single Determination Completed Medical Devices Description No Information Available Encounters Type Date Location Provider Dx Diagnosis Office Visit 05/30/2019 [facility] Radha Mohan NP J20.9 Acute bronchitis, 4:15p unspecified R05 Cough Office Visit 04/08/2019 2:30p [facility] Myriam Redding SOA ARCHITECT D49.2 Neoplasm of unsp behavior of bone, soft tissue, and skin Z68.26 Body mass index (BMI) 26.0-26.9, adult Office Visit 01/06/2019 11:00a [facility] DigisaiahvanLauren agudeloMyriam, Z00.00 Encntr for general SOA ARCHITECT adult medical exam w/o abnormal findings G43.109 Migraine with aura, not intractable, w/o status migrainosus R12 Heartburn J30.9 Allergic rhinitis, unspecified 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, in remission Z13.31 Encounter for screening for depression Z68.28 Body mass index (BMI) 28.0-28.9, adult Assessments Date Code Description Provider 06/09/2019 R00.2 Palpitations Radha Mohan NP 06/09/2019 J20.9 Acute bronchitis, unspecified StraRadha ocampo, SOA ARCHITECT 06/09/2019 R00.2 Palpitations Schedule, Laboratory 06/09/2019 R00.2 Palpitations [facility] 05/30/2019 J20.9 Acute bronchitis, unspecified Radha Mohan, SOA ARCHITECT 05/30/2019 R05 Cough Radha Mohan, SOA ARCHITECT 04/08/2019 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, Digiovanna, Myraim, SOA ARCHITECT soft tissue, and skin 04/08/2019 Z68.26 Body mass index (BMI) 26.0-26.9, adult DigLauren khanricia, SOA ARCHITECT 01/06/2019 Z00.00 Encounter for general adult medical Myriam Redding, SOA ARCHITECT examination without abno 01/06/2019 G43.109 Migraine with aura, not intractable, Digiovanna, Myriam , SOA ARCHITECT without status migraino 01/06/2019 R12 Heartburn Lauren Reddingricia, SOA ARCHITECT 01/06/2019 J30.9 Allergic rhinitis, unspecified Digiovanna, Myriam, SOA ARCHITECT 01/06/2019 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 Take with foodSupportive care:Plenty of rest and fluidsOTC Analgesics/antipyretics as neededRecommend Mucinex 600 mg every 12 hours until cough resolvesYou should start to feel better over the next 2-3 days. If your symptoms worsen or you develop fevergreater than 101.0, return to office for re-evaluation.Follow up:Schedule CXR Follow-up as [id number] CoughNew Medication:Benzonatate 100 mg - 1 by mouth three times a day as needed for coughComments:Recommend cool mist humidification, warm/cool liquids with or without honey for comfortCough lozenges can helpA few sips of pineapple juice can offer some reliefAdvised cough can linger for 4 weeks after feeling better. Deep breathing to prevent pneumonia Functional Status Description No Information Available Mental Status Description No Information Available Referrals Refer to Reason for Referral Status Appt Date [facility] Diagnostic evaluation for asthma. Recent Created CXR with hyperinflation. Significant hx of second hand smoke in home as a child. [address] [place] [address] [phone] Epi Thomas md Evaluation of large lipoma [...] back to sched surg 05/21 ms [address] [place] [address] [phone] Radha Steiner MD Evaluation and possible excision Patient Declined of skin lesion L lateral breast [facility] Office FORMS FAXED FOR PROVIDER TO REVIEW IN ORDER TO GET AN APPT SCHEDULED/SCG/04/11 Called and spoke to Prabha who stated that they have not been able to get in contact with the pt yet she will be trying again today. And will fax us as soon as she gets an apt scheduled with her. CHERELLE 04/17 [address] [place] [address] [facility] [phone]
--- OUTSIDE RECORDS SUMMARY | 2019-07-13 12:32 | XMS REPORT | Continuity of Care Document ---
:1980 External Reference #:[id number] Author Name Nilson Morgan MD Address [address] [place] [address] Care Team Providers Name Role Phone Radha Mohan N.P. 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 Problems Active Problems Provider Date Uncomplicated moderate persistent asthma Nilson Morgan MD Onset: 12/2019 Allergic rhinitis Nilson Morgan MD Onset: 07/01/2019 Allergic rhinitis due to pollen Nilson Morgan MD Onset: 07/01/2019 Social History Type Date Description Comments Sex Unknown Tobacco Use Start: Unknown Second Hand Smoke Exposure In The in childhood Home Tobacco Use Start: Unknown Patient has never smoked Smoking Status Reviewed: 07/01/19 Patient has never smoked Allergies, Adverse Reactions, Alerts Active Allergies Reaction Severity Comments Date Penicillin 07/01/2019 Medications Active Medications SIG Qnty Indications Ordering Provider Date Fluticasone spray 2 sprays in 16gm J30.1 opher A. 07/01/2019 Propionate each nostril MD Eddie daily 50mcg/Act Suspension Xyzal 1 tab by mouth 30tabs J30.1 opher A. 07/01/2019 5mg Tablets every day as MD Eddie needed Flovent HFA inhale 2 puffs 12gm J30.1 opher A. 07/01/2019 (220 mcg) by MD Eddie 110mcg/Act Aerosol inhalation route 2 times per day Proair HFA 2 puffs every 4 8.500gm J30.1 opher A. 07/01/2019 as needed MD Eddie 108(90Base) mcg/Act Aerosol Omeprazole TK 1 C PO D prn Unknown 20mg Capsules DR Jacqueline Stanford LQ And U 1 Unknown Propionate SPR Ien D 50mcg/Act Suspension Albuterol Sulfate Inl 2 PFS PO Q 4 Unknown HFA H PRF WHZ 108(90Base) mcg/Act Aerosol Immunizations Description No Information Available Vital Signs Date Vital Result Comment 07/01/2019 9:01am BP Systolic 133 mmHg BP Diastolic 90 mmHg Height 64 inches 5'4" Weight 161.00 lb BMI (Body Mass Index) 27.6 kg/m2 Heart Rate 80 /min O2 % [facility]ldC Oximetry 98 % Results Test Acquired Date Facility Test Result H/L Range Note .CBC Auto Diff 07/01/2019 [facility] Z#Other <pending> [address] [facility] [place] [address] [phone] Laboratory test 07/01/2019 [facility] Ige Total <pending> finding [address] [place] [address] [phone] Order 07/01/2019 [facility] Inhaler <pending> Training-Patient Demonstrates Competency Nitric Oxide <pending> PFT Supplies <pending> PFT With Bronchodilator <pending> Skin Test Seasonal and Environmental <pending> Procedures Date Code Description Status 07/01/2019 69300 Nitric Oxide Gas Determination Completed 07/01/2019 89234 Allergy Tests Percutaneous W/ Allergenic Extracts Completed 07/01/2019 90104 Demonstration/Eval,Of Patient Utilization Of Completed Aerosol,Nebulizer 07/01/2019 92466 Bronchodilation Responsiveness Spirometry Pre/Post Completed Bronchodil Adm Medical Devices Description No Information Available Encounters Description No Information Available Assessments Date Code Description Provider 07/01/2019 J30.1 Allergic rhinitis due to pollen Nilson Morgan MD 07/01/2019 J30.89 Other allergic rhinitis Nilson Morgan MD 07/01/2019 J45.40 Moderate persistent asthma, uncomplicated Nilson Morgan MD Plan of Treatment 07/01/2019 - Nilson Morgan MDJ30.1 Allergic rhinitis due to pollenNew Medication:Fluticasone Propionate 50 mcg/Act - spray 2 sprays in each nostril dailyXyzal 5 mg - 1 tab by mouth every day as neededFlovent HFA 110 mcg/Act - inhale 2 puffs (220 mcg) by inhalation route 2 times per dayProair HFA 108(90 Base) mcg/Act - 2 puffs every 4 as myraolR81.89 Other allergic pxrvbzlnV67.40 Moderate persistent asthma, uncomplicated Functional Status Description No Information Available Mental Status Description No Information Available Referrals Description No Information Available
--- OUTSIDE RECORDS SUMMARY | 2019-07-13 12:32 | XMS REPORT | Continuity of Care Document ---
:1980 External Reference #:[id number] Author Name Radha Mohan, DEANA Address [address] [place] [id number] Care Team Providers Name Role Phone Emily Weinberg MD - Family Medicine Care Team Information Global Cto Radha Steiner MD - Care Team Information Global Cto [phone] Dermatology Epi Thomas md Care Team Information Global Cto [phone] Radha Mohan NP - Family Care Team Information Global Cto [phone] Problems Active Problems Provider Date Migraine with [...] Medications SIG Qnty Indications Ordering Provider Date Benzonatate 1 by mouth three 60caps R05 Emily Weinberg, 05/30/2019 100mg times a day as MD Capsules needed for cough Prednisone 2 by mouth every 11tabs J20.9 Emily Weinberg, 05/30/2019 20mg Tablets day for 4 days MD then 1 by mouth every day for 3 days Mirena (52 MG) as directed Miladis, 10/10/2017 Myriam, SEISMOGRAPHER 20mcg/24HR IUD Proair HFA 2 puffs every 4 1units T78.40xA Digiovanna, 01/08/2015 108(90Base) hours as needed Myriam, SEISMOGRAPHER mcg/Act Aerosol for cough or sob J30.9 Fluticasone Shake Liquid And 16units T78.40xA Digiovanna, 10/16/2014 Propionate Use 1 [place] Myriam, SEISMOGRAPHER 50mcg/Act Each Nostril Suspension Daily J30.9 Excedrin Migraine 1-2 po Q4H prn G43.109 Digiovanna, 07/06/2014 migraine Myriam, SEISMOGRAPHER [phone] Tablets Valacyclovir HCL 1 tab by mouth 20tabs B00.1 Digiovanna, 1gm q12 x 5 days Myriam, SEISMOGRAPHER Tablets hours as needed Omeprazole take 1 capsule by 90caps R12 Digiovanna, 20mg Capsules mouth daily as Myriam, SEISMOGRAPHER needed Immunizations CPT Code Status Date Vaccine Reaction Lot # [id number] Given 05/20/2012 Tdap (Adacel) Ages 7 And Above Only [id number] Refused 04/08/2019 Afluria Or Fluvirin Flu Vac Intramuscular Q2039 Refused 01/06/2019 Flu Vaccine NOS Pt says she does not get flu shots. CARYL TROY [id number] Refused 07/15/2018 Flu Vaccine NOS NOT GETTING Vital Signs Date Vital Result Comment 05/30/2019 4:28pm Body Temperature 98.6 F Heart Rate 79 /min BP Systolic 122 mmHg BP Diastolic 86 mmHg Respiratory Rate 16 /min Height 63.5 inches 5'3.50" CARYL Troy 01/06/19 O2 % BldC Oximetry 99 % 04/08/2019 2:28pm Weight 154.00 lb Heart Rate 90 /min BP Systolic 132 mmHg BP Diastolic 80 mmHg Respiratory Rate 16 /min Height 63.5 inches 5'3.50" CARYL Troy 01/06/19 BMI (Body Mass Index) 26.8 kg/m2 Results Description No Information Available Procedures Date Code Description Status 05/30/2019 44645 Measure Blood Oxygen Level Single Determination Completed Medical Devices Description No Information Available Encounters Type Date Location Provider Dx Diagnosis Office Visit 04/08/2019 [facility] Digiovanna, 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, SEISMOGRAPHER behavior of bone, soft tissue, and skin Z68.26 Body mass index (BMI) 26.0-26.9, adult Office Visit 01/06/2019 11:00a [facility] Digiosherley Myriam, Z00.00 Encntr for general SEISMOGRAPHER adult medical exam w/o abnormal findings G43.109 Migraine with aura, not intractable, w/o status migrainosus R12 Heartburn J30.9 Allergic rhinitis, unspecified 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, in remission Z13.31 Encounter for screening for depression Z68.28 Body mass index (BMI) 28.0-28.9, adult Assessments Date Code Description Provider 05/30/2019 J20.9 Acute bronchitis, unspecified Radha Mohan NP 05/30/2019 R05 Cough Radha Mohan, SEISMOGRAPHER 04/08/2019 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, Digiovanna, Myriam, SEISMOGRAPHER soft tissue, and skin 04/08/2019 Z68.26 Body mass index (BMI) 26.0-26.9, adult Lauren Reddingricia, SEISMOGRAPHER 01/06/2019 Z00.00 Encounter for general adult medical Myriam Redding, SEISMOGRAPHER examination without abno 01/06/2019 G43.109 Migraine with aura, not intractable, Digiovanna, Myriam , SEISMOGRAPHER without status migraino 01/06/2019 R12 Heartburn Neftalina, Myriam, SEISMOGRAPHER 01/06/2019 J30.9 Allergic rhinitis, unspecified Digiovanna, Myriam, SEISMOGRAPHER 01/06/2019 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 Take with foodSupportive care:Plenty of rest and fluidsOTC Analgesics/antipyretics as neededRecommend Mucinex 600 mg every 12 hours until cough resolvesYou should start to feel better over the next 2-3 days. If your symptoms worsen or you develop fevergreater than 101.0, return to office for re-evaluation.Follow up:Schedule CXR Follow-up as [id number] CoughNew Medication:Benzonatate 100 mg - 1 by [...] to Reason for Referral Status Appt Date Epi Thomas md Evaluation of large lipoma [...] called back to sched surg 05/21 ms [facility] [place] [address] [phone] Radha Steiner MD Evaluation and possible excision Patient Declined of skin lesion L lateral breast [place] Office FORMS FAXED FOR PROVIDER TO REVIEW IN ORDER TO GET AN APPT SCHEDULED/SCG/04/11 Called and spoke to Prabha who stated that they have not been able to get in contact with the pt yet she will be trying again today. And will fax us as soon as she gets an apt scheduled with her. CHERELLE 04/17 [address] [place] [address] [facility] [phone]
[2019-07-13 12:41] VITALS: BP 122/83
--- NOTE | 2019-07-13 13:01 | UC ---
FLU HPI - HPI Summary HPI Summary: Pt presents with c/o fever, chills, nasal congestion, cough X 5 days. Pt c/o "burning" in chest with cough Pt has known exposure to flu. - History of Current Complaint Chief Complaint: UCRespiratory Stated Complaint: SORE THROAT, URI SYMPTOMS Time Seen by Provider: 07/13/19 12:36 Hx Obtained From: Patient Hx Last Menstrual Period: Mirena IUD ?: No Onset/Duration: Sudden Onset, Lasting Days, Still Present Severity Currently: Mild Severity Initially: Mild Pain Intensity: 4 Associated Signs & Symptoms: Positive: Fever, Myalgia, Cough, Sore Throat, Nasal Congestion Related Hx: Possible Flu/Infectious Exposure - Risk Factors Influenza Risk Factors: Negative - Allergy/Home Medications Allergies/Adverse Reactions: Allergies Allergy/AdvReac Type Severity Reaction Status Date / Time Penicillins Allergy Flushing Verified 07/13/19 12:36 amoxicillin AdvReac Severe GI Upset Verified 07/13/19 12:36 seasonal Allergy sinus Uncoded 07/13/19 12:36 infections Home Medications: Home Medications Fluticasone HFA 110 mcg(NF) [Flovent HFA 110 mcg(NF)] 2 puff INH BID 07/13/19 [ History Confirmed 07/13/19] LevoCETirizine TAB (NF) [Xyzal TAB (NF)] 5 mg PO DAILY PRN 07/13/19 [History Confirmed 07/13/19] PMH/Surg Hx/FS Hx/Imm Hx Previously Healthy: Yes Respiratory History: Asthma, Bronchitis GI/ History: Gastroesophageal Reflux - Surgical History Surgical History: None - Family History Known Family History: Positive: Cardiac Disease, Hypertension, Diabetes - Social History Occupation: Employed Full-time Lives: With Family Alcohol Use: Weekly Alcohol Amount: 3/WEEK Substance Use Type: None Smoking Status (MU): Never Smoked Tobacco Have You Smoked in the Last Year: No - Immunization History Most Recent Influenza Vaccination: NOT CURRENT Vaccination Up to Date: Yes Review of Systems All Other Systems Reviewed And Are Negative: Yes Constitutional: Positive: Fever, Chills, Fatigue Skin: Positive: Negative Eyes: Positive: Negative ENT: Positive: Sinus Congestion Respiratory: Positive: Cough Cardiovascular: Positive: Negative Gastrointestinal: Positive: Negative Genitourinary: Positive: Negative Motor: Positive: Negative Neurovascular: Positive: Negative Musculoskeletal: Positive: Myalgia Neurological: Positive: Negative Psychological: Positive: Negative Is Patient Immunocompromised?: No Physical Exam Triage Information Reviewed: Yes Appearance: Well-Appearing Vital Signs: Initial Vital Signs Temp 99.2 F 07/13/19 12:34 Pulse 100 07/13/19 12:34 Resp 16 07/13/19 12:34 BP 122/83 07/13/19 12:34 Pulse Ox 99 07/13/19 12:34 Vital Signs Reviewed: Yes Eye Exam: Normal ENT: Positive: Nasal congestion Dental Exam: Normal Neck exam: Normal Respiratory Exam: Normal Respiratory: Positive: Normal breath sounds Cardiovascular: Positive: Tachycardia Musculoskeletal Exam: Normal Neurological Exam: Normal Psychological Exam: Normal Skin Exam: Normal Flu Course/Dx - Differential Dx/Diagnosis Differential Diagnosis/HQI/PQRI: Influenza, Upper Respiratory Infection, Other - strep throat Provider Diagnosis: Influenza B Discharge ED - Sign-Out/Discharge Documenting (check all that apply): Patient Departure All imaging exams completed and their final reports reviewed: No Studies - Discharge Plan Condition: Stable Disposition: HOME Prescriptions: Benzonatate CAP* [Tessalon 100 MG CAP*] 100 mg PO Q8H PRN #30 cap PRN Reason: Cough predniSONE 10 mg TAB [Deltasone 10 MG TAB*] 30 mg PO DAILY #12 tab Patient Education Materials: Influenza (ED) Referrals: Myriam Redding [Primary Care Provider] - If Needed - Billing Disposition and Condition Condition: STABLE Disposition: Home - Attestation Statements Provider Attestation: I was available for consult. This patient was seen by the JAMES. The patient was not presented to , seen by or examined by ne -Randy Dubois MD
[2019-07-13 13:02] LABS: Influenza B Molecular POSITIVE (Negative)
== END 2019-07-13 13:12 | disposition home or self-care (01) ==
LOC: UCCORT 11:21
DX: J10.1 Influenza due to other identified influenza virus with other respiratory manifestations (principal); J45.909 Unspecified asthma, uncomplicated; Z88.0 Allergy status to penicillin; Z88.1 Allergy status to other antibiotic agents; Z91.09 Other allergy status, other than to drugs and biological substances
CPT/HCPCS: 87651; 99212; G0463